=== PATIENT | female | born 1970 | race Caucasian/White ===

== ENCOUNTER 2017-06-29 08:09 | Inpatient (IN) | payer OTHER ==
[2017-06-29] MEDS ORDERED: Bupivacaine 0.5%/EPINEPHrine 1:200,000 50 ML MDV ONE (08:42)
[2017-06-29] MEDS ORDERED: Acetaminophen 500 MG Tab PO ONE (08:45)
[2017-06-29] MEDS ORDERED: Gabapentin 300 MG Cap PO ONE (08:45)
[2017-06-29] MEDS ORDERED: Celecoxib 200 MG Cap PO ONE (08:45)
[2017-06-29] MEDS ORDERED: Scopolamine 1.5 MG Transdermal Patch TOP SCH (08:45)
[2017-06-29] MEDS ORDERED: cefOXitin 2 GM in Sodium Chloride 0.9% 50 ML IV ONE (09:15)
[2017-06-29] MEDS: Dextrose 5%-Lactated Ringers 1,000 ML IV SCH ×3 (09:16→22:07)
[2017-06-29] MEDS ORDERED: Ropivacaine 50 ML, Dexamethasone 8 MG, EPINEPHrine 0.4 MG, Sodium Chloride 0.9% 27.6 ML NERVRT SCH ×4 (11:15)
[2017-06-29] MEDS ORDERED: Ketamine 500 MG/5 ML MDV IV SCH (11:15)
[2017-06-29] MEDS ORDERED: Lidocaine 2% 100 MG/5 ML Syringe IVPUSH ONE (11:15)
[2017-06-29] MEDS ORDERED: fentaNYL 250 MCG/5 ML SDV ONE ×2 (11:42→13:03)
[2017-06-29] MEDS ORDERED: Propofol 200 MG/20 ML SDV ONE (11:43)
[2017-06-29] MEDS ORDERED: Dexamethasone 4 MG/ML SDV ONE (11:43)
[2017-06-29] MEDS ORDERED: Ondansetron 4 MG/2 ML SDV ONE (11:43)
[2017-06-29] MEDS ORDERED: Glycopyrrolate 0.2 MG/ML 5 ML MDV ONE (11:43)
[2017-06-29] MEDS ORDERED: Rocuronium 50 MG/5 ML Vial ONE (11:43)
[2017-06-29] MEDS ORDERED: Neostigmine Methylsulfate 1 MG/ML 5 ML Syringe ONE (11:43)
[2017-06-29] MEDS ORDERED: Succinylcholine 200 MG/10 ML MDV ONE (11:43)
[2017-06-29] MEDS ORDERED: HYDROmorphone/Normal Saline 15 MG/30 ML PCA IV PRN (12:22)
[2017-06-29] MEDS: Lidocaine 0.4%/D5W 2 GM/500 ML BAG IV SCH (13:00)
[2017-06-29] MEDS ORDERED: Meropenem 500 MG SDV ONE (13:25)
[2017-06-29] MEDS ORDERED: Insulin Aspart 100 Units/ML 3 ML Pen SUBCUT ONE (14:45)
[2017-06-29] MEDS ORDERED: Glucose Gel 15 GM in 37.5 GM Tube PO PRN (16:05)
[2017-06-29] MEDS ORDERED: Glucagon,Human Recombinant 1 MG Vial IM PRN (16:05)
[2017-06-29] MEDS ORDERED: 50% Dextrose in Water 50 ML Syringe IVPUSH PRN (16:05)
[2017-06-29] MEDS ORDERED: hydrOXYzine HCl 100 MG/2 ML SDV IM PRN (17:00)
[2017-06-29] MEDS ORDERED: Metoclopramide 10 MG/2 ML SDV IVPUSH PRN (17:00)
[2017-06-29] MEDS ORDERED: MVI, Adult with Vitamin K 10 ML, Thiamine 100 MG, Chromium/Copper/Mang/Selen/Zn 1 ML in... IV SCH ×8 (17:00)
[2017-06-29] MEDS ORDERED: Labetalol 20 MG/4 ML Syringe IVPUSH PRN (17:00)
[2017-06-29] MEDS ORDERED: diphenhydrAMINE 50 MG/ML SDV IVPUSH PRN (17:00)
[2017-06-29] MEDS: Insulin Aspart 100 Units/ML 3 ML Pen SUBCUT SCH ×2 (17:02→22:06)
[2017-06-29] MEDS ORDERED: Pantoprazole 40 MG Vial IVPUSH SCH (18:00)
[2017-06-29] MEDS: Acetaminophen Soln 650 MG/20.3 ML UD Cup PO SCH (20:42)
[2017-06-29] MEDS: Heparin Sodium 5,000 Units/ML Vial SUBCUT SCH (20:42)
[2017-06-29] MEDS: Gabapentin 250 MG/5 ML Solution ML 470 ML Bottle PO SCH (20:42)
[2017-06-29] MEDS ORDERED: Gabapentin 250 MG/5 ML Solution ML 470 ML Bottle PO SCH (21:00)
[2017-06-30] MEDS: Insulin Aspart 100 Units/ML 3 ML Pen SUBCUT SCH ×3 (00:07→05:48)
[2017-06-30] MEDS ORDERED: Iohexol 647 MG/ML 50 ML SDV PO PRN (01:07)
[2017-06-30] MEDS: Acetaminophen Soln 650 MG/20.3 ML UD Cup PO SCH ×4 (02:04→19:32)
[2017-06-30] MEDS: Dextrose 5%-Lactated Ringers 1,000 ML IV SCH (05:42)
[2017-06-30] MEDS: Lidocaine 0.4%/D5W 2 GM/500 ML BAG IV SCH (05:47)
[2017-06-30] MEDS ORDERED: Insulin Aspart 100 Units/ML 3 ML Pen SUBCUT PRN (07:17)
[2017-06-30] MEDS: Heparin Sodium 5,000 Units/ML Vial SUBCUT SCH ×2 (08:09→19:32)
[2017-06-30] MEDS: Celecoxib 200 MG Cap PO SCH (09:08)
[2017-06-30] MEDS: SCOPOLAMINE PATCH CHECK TOP SCH (09:10)
[2017-06-30] MEDS: Gabapentin 250 MG/5 ML Solution ML 470 ML Bottle PO SCH (09:13)
[2017-06-30] MEDS: Loratadine 10 MG Tab PO SCH (11:19)
[2017-06-30] MEDS: Gabapentin 300 MG Cap PO SCH ×2 (13:56→20:40)
[2017-06-30] MEDS: Pantoprazole 40 MG Tab.CR PO SCH (15:39)
[2017-06-30] MEDS: MVI, Adult with Vitamin K 10 ML, Thiamine 100 MG, Chromium/Copper/Mang/Selen/Zn 1 ML in... IV SCH ×4 (15:40)
[2017-07-01] MEDS: Acetaminophen Soln 650 MG/20.3 ML UD Cup PO SCH ×4 (01:27→20:46)
[2017-07-01] MEDS: Dextrose 5%-Lactated Ringers 1,000 ML IV SCH ×2 (02:24→12:11)
[2017-07-01] MEDS: Ondansetron 4 MG/2 ML SDV IVPUSH PRN ×3 (02:48→19:41)
[2017-07-01] MEDS: Celecoxib 200 MG Cap PO SCH (07:36)
[2017-07-01] MEDS: Heparin Sodium 5,000 Units/ML Vial SUBCUT SCH ×2 (07:36→20:46)
[2017-07-01] MEDS ORDERED: Cyanocobalamin (Vitamin B12) 1,000 MCG/ML SDV IM ONE (09:00)
[2017-07-01] MEDS: HYDROmorphone 2 MG Tab PO PRN ×2 (09:23→21:46)
[2017-07-01] MEDS: SCOPOLAMINE PATCH CHECK TOP SCH (09:24)
[2017-07-01] MEDS: Loratadine 10 MG Tab PO SCH (09:25)
[2017-07-01] MEDS: Gabapentin 300 MG Cap PO SCH ×3 (09:25→20:46)
[2017-07-01] MEDS ORDERED: Bisacodyl 10 MG Supp RECTAL ONE (10:00)
[2017-07-01] MEDS ORDERED: Magnesium Hydroxide 400 MG/5 ML Susp 30 ML Cup PO ONE (10:00)
--- NOTE | 2017-07-01 14:03 | PN ---
DATE OF SERVICE: 07/01/2017 The patient has been afebrile with stable vital signs. She was doing well, but nausea and some increased pain. We will add some Dilaudid on a p.r.n. basis, Dulcolax suppository, milk of magnesia will be given, and we will hold the discharge until these issues have resolved. Blood sugars have come down into the normal range and we will discontinue Accu-Cheks at this time as well. Venu Tierney MD /[id number]
[2017-07-01] MEDS: MVI, Adult with Vitamin K 10 ML, Thiamine 100 MG, Chromium/Copper/Mang/Selen/Zn 1 ML in... IV SCH ×4 (15:41)
[2017-07-01] MEDS: Pantoprazole 40 MG Tab.CR PO SCH (15:45)
[2017-07-01] MEDS: Scopolamine 1.5 MG Transdermal Patch TRDERM SCH (20:42)
[2017-07-01] MEDS: Metoclopramide 10 MG/2 ML SDV IVPUSH SCH (21:46)
[2017-07-02] MEDS: Acetaminophen Soln 650 MG/20.3 ML UD Cup PO SCH ×4 (03:23→20:39)
[2017-07-02] MEDS: Metoclopramide 10 MG/2 ML SDV IVPUSH SCH ×3 (03:50→15:45)
[2017-07-02] MEDS: Dextrose 5%-Lactated Ringers 1,000 ML IV SCH (07:46)
[2017-07-02] MEDS: Celecoxib 200 MG Cap PO SCH (08:47)
[2017-07-02] MEDS: Heparin Sodium 5,000 Units/ML Vial SUBCUT SCH ×2 (08:47→20:41)
[2017-07-02] MEDS: SCOPOLAMINE PATCH CHECK TOP SCH (08:47)
[2017-07-02] MEDS: Gabapentin 300 MG Cap PO SCH ×3 (08:47→20:39)
[2017-07-02] MEDS: Loratadine 10 MG Tab PO SCH (08:48)
[2017-07-02] MEDS: Ondansetron 4 MG/2 ML SDV IVPUSH PRN (08:51)
--- NOTE | 2017-07-02 08:55 | CR ---
Limited upper GI The patient is status post Rangel-en-Y gastric bypass. There are left upper quadrant drains in place. T here is no extravasation of contrast. The gastric pouch empties readily into a nondilated Rangel limb. No complications are evident. Contrast is visualized within the colon from a CT exam performed the pr ior day. Impression: 1. Status post Rangel-en-Y gastric bypass without evidence for complication.
--- NOTE | 2017-07-02 09:23 | PN ---
DATE OF SERVICE: 07/02/2017 SUBJECTIVE: Linda did very well until yesterday morning, and she started having emesis after eating. At her evening meal, she had a protein shake. She has been n.p.o. with ice chips since that time. Has not had a bowel movement, and she had one on 07/01/2017. Vital signs otherwise have been stable and pain is controlled. REVIEW OF SYSTEMS: Remainder of review of systems negative for any pertinent positives and negatives. OBJECTIVE: GENERAL: Donna Pascual is a 46-year-old female. VITAL SIGNS: TPR is 99.4, 79, 18, and blood pressure 114/57. HEENT: Negative. NECK: Supple. HEART: Regular rate and rhythm. LUNGS: Clear. ABDOMEN: Dressings dry and intact. Abdominal binder is on. EXTREMITIES: Without peripheral edema. ASSESSMENT: Diagnostic laparoscopy turned to laparotomy with reduction of small bowel volvulus and closure of internal hernia, small bowel resection, rectosigmoid colon resection and mobilization of omentum into pelvis for small bowel volvulus with focal strangulation at the JJ junction, sigmoid colon volvulus, on 06/29/2017. PLAN: 1. Full liquid diet. 2. Give 3 med cups, to drink one q.20 minutes or 3 per hour. 3. Communication order written that if any further emesis, to call Venu Tierney MD. An upper GI with post Rangel-en-Y gastric bypass surgery protocol will be scheduled in a.m. 4. Good pulmonary toilet. 5. We will evaluate p.r.n. or in a.m. Mame Albert PA-C /[id number]
--- NOTE | 2017-07-02 12:56 | PN ---
DATE OF SERVICE: 06/30/2017 The patient has been afebrile with stable vital signs. Overall, appears to be doing well. Urine output has been quite high and we will turn down the IV rate. Her upper GI x-ray looks good. We will begin a step-4 diet today and continue current pain management with Celebrex, gabapentin, and Tylenol; appears to be working fairly satisfactory. She states that she is not using any Dilaudid at this time. We will add some senna Plus to the regimen today. Otherwise, begin step-4 diet and maximize activity and work with pulmonary toilet. Venu Tierney MD /[id number]
--- NOTE | 2017-07-02 14:27 | OR ---
DATE OF PROCEDURE: 06/29/2017 PREOPERATIVE DIAGNOSIS: Partial small bowel obstruction. POSTOPERATIVE DIAGNOSES: 1. 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 2. Sigmoid colon volvulus. OPERATIVE PROCEDURES: Diagnostic laparoscopy converted to laparotomy with; 1. Reduction of small bowel volvulus and closure of internal hernia (73156). 2. Small bowel resection (00616). 3. Rectosigmoid colon resection (31544). 4. Mobilization of omentum into pelvis to limit adhesion formation between pelvic and abdominal morales and underlying viscera (50568). ANESTHESIA: General. TOP BOTTOM ATTACHING MACHINE OPERATOR: Mame Albert PA-C. INDICATION FOR PROCEDURE: The patient presented with a clinical picture of a partial small bowel obstruction. The plan is to proceed with a diagnostic laparoscopy, laparotomy if necessary, and bowel procedures as indicated, including potential resection. Potential risks including bleeding, infection, leaks from various GI tract closures, possible recurrence of the problem over time, and the possibility of cardiopulmonary, septic, or hemorrhagic complications leading to were discussed, and the patient wishes to proceed. DETAILS OF PROCEDURE: The patient was taken to the operating room and after general endotracheal anesthesia was induced, she was placed in a lithotomy position. Guido catheter was inserted and the abdomen was prepped and draped. In the left lower quadrant, a transverse incision was made, and the peritoneal cavity was entered under direct vision with an Optiview trocar. The patient was noted to have a massively dilated sigmoid colon. Looking at the base of the loop, there appeared to be a chronic sigmoid volvulus at that location, as there was a crease across the bowel, where it was partially at this point flipped over on itself. At this point, bilateral transversus abdominis plane blocks were placed using direct vision with the laparoscope and the needle in the correct plane and standard solution being placed bilaterally. Due to the large size of the colon obscuring much of the view of the small bowel, at that point, we decided to proceed with an open laparotomy. Trocars were removed, and the peritoneal cavity deflated. An incision was then made from the umbilicus roughly a handsbreadth toward the xiphoid. This was carried down through the full thickness of abdominal wall and the peritoneal cavity identified. Initially, we resected the colon beginning with dividing the midsigmoid colon and then the upper rectum with IVETH rosendo, and the underlying mesentery with the mesenteric and vascular IVETH loads. This allowed us a more easy visualization of the small bowel by getting the large air-filled sigmoid colon and upper rectum out of the operative field. Exploration revealed a volvulus involving the small bowel with a large amount of the small bowel rotating from a right to left direction underneath the mesenteric defect, below the jejunojejunostomy. This was gradually reduced. The bowel and the side of the volvulus were somewhat mehta in appearance, with intravenous hypertension, the entire bowel pinked up nicely with its reduction, and there were no areas that were ischemic after reduction. There was a fixed stricture at the point where the Rangel limb entered the jejunojejunostomy. This area was then divided with the Rangel limb being divided just flush to the jejunojejunostomy. Resection of the small bowel was then undertaken as the divided end of the Rangel limb was somewhat ischemic at that point, and that specimen was sent for a pathologic review. A 3 cm distally then the [id number] enteroenterostomy between the divided end of the Rangel limb and the small bowel level was accomplished with internal firing of the Endo-IVETH 60 mm stapler. Common opening was closed transversely with the same stapler. Angles anastomosed were then reinforced with some 3-0 Vicryl stitch. The mesenteric defect was then closed with a running 2-0 silk stitch. As this point, the anastomosis between the sigmoid colon and the upper rectum was accomplished with a [id number] firing initially of 60 mm internal firing of the IVETH martinez load followed by 45 mm internal firing of a martinez load. The common opening was then closed transversely with the purple load, the angles anastomosed, and mesenteric defect in this case were reinforced with 3-0 Vicryl stitch. The abdomen was then inspected. At this point, both the anastomoses were then reinforced with some fibrin sealant. The patient was felt to be at high risk for problematic adhesion formation between the pelvic and abdominal wall, and the underlying viscera. Given this, the omentum was brought down and then tacked down to the pelvic sidewall, and area posterior to the urinary bladder with some 3-0 Vicryl stitch. Prior to that, the area had been irrigated with antibiotic-containing saline solution. No further problems were noted at this point. The midline fascia was then approximated with #2 Vicryl stitch and the skin with rosendo. A 10-Hebrew round Roddy-Melton drain had been placed through a stab wound beneath the incision and sutured with 4-0 Vicryl stitch. The patient was taken to the recovery room in a satisfactory condition. Physician boiler assistant operator, Mame Albert, played an essential role in assisting in this case, helping to position the patient, retract structures as needed, as well as suturing and stapling when indicated. Her presence improved patient safety and decreased the operative time. Venu Tierney MD /[id number]
[2017-07-02] MEDS: Pantoprazole 40 MG Tab.CR PO SCH (15:45)
[2017-07-02] MEDS: MVI, Adult with Vitamin K 10 ML, Thiamine 100 MG, Chromium/Copper/Mang/Selen/Zn 1 ML in... IV SCH ×4 (17:07)
[2017-07-02] MEDS ORDERED: Ondansetron 4 MG Tab.DIS PO PRN (18:10)
[2017-07-02] MEDS ORDERED: Metoclopramide 10 MG Tab PO PRN (18:10)
[2017-07-03] MEDS: Acetaminophen Soln 650 MG/20.3 ML UD Cup PO SCH ×2 (02:46→08:13)
[2017-07-03 07:28] VITALS: BP 115/53
[2017-07-03] MEDS: Gabapentin 300 MG Cap PO SCH (08:13)
[2017-07-03] MEDS: Celecoxib 200 MG Cap PO SCH (08:14)
[2017-07-03] MEDS: Loratadine 10 MG Tab PO SCH (08:14)
[2017-07-03] MEDS: Heparin Sodium 5,000 Units/ML Vial SUBCUT SCH ×2 (08:14→08:17)
[2017-07-03] MEDS: SCOPOLAMINE PATCH CHECK TOP SCH (08:17)
[2017-07-03] MEDS: Scopolamine 1.5 MG Transdermal Patch TRDERM SCH (09:03)
[2017-07-03] MEDS ORDERED: Scopolamine 1.5 MG Transdermal Patch TRDERM SCH (10:00)
--- NOTE | 2017-07-04 12:59 | DISCH ---
FINAL DIAGNOSES: 1. 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 2. Sigmoid colon volvulus. 3. Type 2 diabetes mellitus. 4. Bariatric surgery status. 5. History of depression. 6. History of hyperlipidemia. 7. History of back and joint pain. OPERATIVE PROCEDURE: This was done on 06/29, laparoscopy converted to laparotomy with; 1. Reduction of small bowel volvulus and closure of internal hernia. 2. Small bowel resection. 3. Rectosigmoid colon resection. 4. Mobilization of omentum into the pelvis to limit adhesion formation between pelvic and abdominal morales and underlying viscera. SUMMARY: This is a 46-year-old status post Rangel-en-Y gastric bypass on October of 2012. She presents now with partial bowel obstruction type symptoms. On this day of operation, the patient underwent a laparoscopy converted to laparotomy with the latter related to a strikingly enlarged and twisted sigmoid colon. She was found to have a small bowel volvulus, and after reduction of that, was noted to have a fixed stricture at the jejunojejunostomy. The patient to be somewhat more distal small bowel anatomy and then was also noted to have the sigmoid colon volvulus which resulted in rectosigmoid resection as well. Postoperatively, the patient had some problems with nausea and vomiting for the first 2 to 3 days. This is now resolved, and she will be sent home maintaining a soft solid diet until the next appointment which will be with Mame Albert at [facility], Sunday, 07/10. MEDICATIONS ON DISCHARGE: Include the same as the prior to admission plus Celebrex 200 mg p.o. daily x14 days; gabapentin 300 mg p.o. t.i.d. x14 days; Zofran 4 mg ODT q.4 hours p.r.n. nausea, #25, refill x1; Senna Plus 2 tablets daily, 1 month's supply being called in; and Tylenol 650 mg p.o. q.i.d. x1 week, then p.r.n. She had a lap scopolamine patch placed today and was instructed to remove that in 4 days.
== END 2017-07-03 09:40 | disposition home or self-care (01) | DRG 330 ==
LOC: JP.SDS 08:09 → JP.SDSSCHI 08:09 → EDSTATUS 11:15 → JP.SDSSCHI 14:05 → JP.2SS 14:05
PROVIDERS: ADMIT Surgery; ATTEND Surgery
PROC: 0DBA0ZX Excision of Jejunum, Open Approach, Diagnostic (ICD-10-PCS; principal; 2017-06-29)
PROC: 0DS80ZZ Reposition Small Intestine, Open Approach (ICD-10-PCS; 2017-06-29)
PROC: 0DJD4ZZ Inspection of Lower Intestinal Tract, Percutaneous Endoscopic Approach (ICD-10-PCS; 2017-06-29)
PROC: 0DBP0ZX Excision of Rectum, Open Approach, Diagnostic (ICD-10-PCS; 2017-06-29)
PROC: 0DBN0ZX Excision of Sigmoid Colon, Open Approach, Diagnostic (ICD-10-PCS; 2017-06-29)
PROC: 0DNU0ZZ Release Omentum, Open Approach (ICD-10-PCS; 2017-06-29)
PROC: 0D1N0ZP Bypass Sigmoid Colon to Rectum, Open Approach (ICD-10-PCS; 2017-06-29)
PROC: 0WQF0ZZ Repair Abdominal Wall, Open Approach (ICD-10-PCS; 2017-06-29)
PROC: 3E0T3BZ Introduction of Anesthetic Agent into Peripheral Nerves and Plexi, Percutaneous Approach (ICD-10-PCS; 2017-06-29)
DX: K56.2 Volvulus (principal); K91.2 Postsurgical malabsorption, not elsewhere classified; Z53.31 Laparoscopic surgical procedure converted to open procedure; K46.9 Unspecified abdominal hernia without obstruction or gangrene; K56.699 Other intestinal obstruction unspecified as to partial versus complete obstruction; I10 Essential (primary) hypertension; E11.9 Type 2 diabetes mellitus without complications; F32.9 Major depressive disorder, single episode, unspecified; E53.8 Deficiency of other specified B group vitamins; Z98.84 Bariatric surgery status; M54.9 Dorsalgia, unspecified; M25.50 Pain in unspecified joint
CPT/HCPCS: 74240; 74240-26; 82962; 88307; 94762; A9270-GY; C9113; J0171; J0330; J0694; J1100; J1644; J2001; J2185; J2405; J2704; J2710; J2765; J2795; J3010; J3410; J3411; J3420; J7030; J7042; J7050; Q9967

== ENCOUNTER 2019-03-30 17:12 | Emergency (ER) | payer BC, MEDICAID, OTHER ==
--- NOTE | 2019-03-30 17:57 | EDM.PDOC ---
<Katheryn Dill - Last Filed: 03/30/19 18:00> ED HPI GENERAL MEDICAL PROBLEM - General Chief Complaint: Abdominal Pain Stated Complaint: PAIN ON LT SIDE STOMACH Time Seen by Provider: 03/30/19 17:52 Source of Information: Reports: Patient History Limitations: Reports: No Limitations - History of Present Illness INITIAL COMMENTS - FREE TEXT/NARRATIVE: pt arrived with pain in the upper abdoman more on the rt than the left. She also has noted a bulge in her upper abdoman when she goes to sit up. Onset: Gradual, Other ( She really has not been feeling right for the past 3 weeks. She did go to the [facility] and she was told she had inflamation in her stomach and colon. ) Duration: Hour(s): Location: Reports: Abdomen Associated Symptoms: Reports: Other (pt has noted a definite chnge in her stools. Alot of times when she eats she feels uncomfortable until she has a bm. ) Abdomen Pain Score (Numeric/FACES): 4 - Related Data Allergies Allergy/AdvReac Type Severity Reaction Status Date / Time gluten Allergy Rash Verified 03/30/19 17:35 ibuprofen Allergy Cannot Verified 03/30/19 17:35 Remember nickel [Nickel] Allergy Rash Verified 03/30/19 17:35 strawberry [[place]] Allergy Hives Verified 03/30/19 17:35 codeine AdvReac Dizziness Verified 03/30/19 17:35 Dairy Products AdvReac Diarrhea Verified 03/30/19 17:35 shrimp Allergy Nausea and Uncoded 03/30/19 17:35 Vomiting Home Meds: Home Meds Loratadine [Claritin] 10 mg PO DAILY 11/12/12 [History] Calcium Carb/Vitamin D3/Vit K1 [Calcium + D Soft Chewable Tab] 1 cap PO DAILY [History] Cyanocobalamin (Vitamin B-12) [Vitamin B-12] 1,000 mcg SL DAILY 06/28/17 [ History] Ergocalciferol (Vitamin D2) [Vitamin D2] 50,000 units PO DAILY 06/28/17 [History ] Multivitamin [Multivitamins] 1 each PO DAILY 06/28/17 [History] Thiamine HCl 50 mg PO DAILY 06/28/17 [History] Acetaminophen [Tylenol] 650 mg PO Q6H PRN 7 Days tablet 07/03/17 [Rx] Ondansetron [Zofran ODT] 4 mg PO Q4H PRN #25 tab.dis 07/03/17 [Rx] Sennosides/Docusate Sodium [Senna Plus Tablet] 2 tab PO DAILY #60 tab 07/03/17 [ Rx] Albuterol [Proventil Neb Soln] 1 puff IH ASDIRECTED 03/30/19 [History] Past Medical History HEENT History: Reports: Allergic Rhinitis, Impaired Vision Cardiovascular History: Reports: High Cholesterol, Hypertension Respiratory History: Reports: Asthma Gastrointestinal History: Reports: Cholelithiasis Genitourinary History: Reports: None CLEARANCE REPRESENTATIVE History: Reports: Dysfunctional Uterine Bleeding, Endometrial Ablation, Musculoskeletal History: Reports: Back Pain, Chronic, Fracture, Osteoarthritis Neurological History: Reports: Concussion, Migraines Psychiatric History: Reports: Anxiety, Depression, Panic Attack Endocrine/Metabolic History: Reports: Diabetes, Type II, Obesity/BMI 30+, Vitamin D Deficiency Hematologic History: Reports: Anemia, B12 Deficiency - Infectious Disease History Infectious Disease History: Reports: Chicken Pox - Past Surgical History Head Surgeries/Procedures: Reports: None HEENT Surgical History: Reports: None Cardiovascular Surgical History: Reports: None Respiratory Surgical History: Reports: None GI Surgical History: Reports: Bariatric Procedure, Cholecystectomy Female Surgical History: Reports: Section, Endometrial Ablation Endocrine Surgical History: Reports: None Neurological Surgical History: Reports: None Musculoskeletal Surgical History: Reports: None Dermatological Surgical History: Reports: None Social & Family History - Tobacco Use Smoking Status *Q: Former Smoker Used Tobacco, but Quit: Yes Month/Year Tobacco Last Used: 2016 Second Hand Smoke Exposure: No - Caffeine Use Caffeine Use: Reports: Coffee - Alcohol Use Days Per Week of Alcohol Use: 2 Number of Drinks Per Day: 1 Total Drinks Per Week: 2 - Recreational Drug Use Recreational Drug Use: No ED ROS GENERAL - Review of Systems Review Of Systems: See Below Constitutional: Reports: No Symptoms HEENT: Reports: No Symptoms Respiratory: Reports: No Symptoms Cardiovascular: Reports: No Symptoms Endocrine: Reports: No Symptoms GI/Abdominal: Reports: Abdominal Pain (pain in the upper abdoman and a definite bulge in the upper abdoman when she goes to sit up. ) : Reports: No Symptoms Musculoskeletal: Reports: No Symptoms Skin: Reports: No Symptoms ED EXAM, GI/ABD - Physical Exam Exam: See Below Text/Narrative:: pt arrived stating that she was having upper abdomanal pain, she has a bulge in her upper abdoman when she goes to sit up when she eats she has pain until she has a bm. Exam Limited By: No Limitations General Appearance: Alert, Moderate Distress Ears: Normal TMs Nose: Normal Inspection Throat/Mouth: Normal Inspection Head: Atraumatic Neck: Normal Inspection Respiratory/Chest: No Respiratory Distress Cardiovascular: Regular Rate, Rhythm GI/Abdominal Exam: Other ( tender in the upper mid abdoman. When she goes to sit up she darinel a definite bulge. ) (Female) Exam: Deferred Rectal (Female) Exam: Deferred Back Exam: Normal Inspection Extremities: Normal Inspection Neurological: Alert, Oriented, Normal Cognition Course - Vital Signs Last Recorded V/S: Last Vital Signs Temp 36.7 C 03/30/19 17:34 Pulse 63 03/30/19 20:21 Resp 16 03/30/19 19:53 BP 134/55 L 03/30/19 20:21 Pulse Ox 95 03/30/19 20:21 - Orders/Labs/Meds Orders: Active Orders 24 hr Category Date Time Status Iopamidol [Isovue-300 (61%)] Med 03/30/19 18:45 Active 100 ml IV . DIRECTED Sodium Chloride 0.45% with KCl [1/2 NS with 20 mEq KCl] Med 03/30/19 19:30 Active 1,000 ml IV ASDIRECTED Sodium Chloride 0.9% [Normal Saline] 1,000 ml Med 03/30/19 18:00 Active IV ASDIRECTED Sodium Chloride 0.9% [Normal Saline] 100 ml Med 03/30/19 18:45 Active IV ASDIRECTED Medication Orders Sodium Chloride (Normal Saline) 1,000 mls @ 999 mls/hr IV ASDIRECTED LAVON Last Admin: 03/30/19 18:11 Dose: 999 mls/hr Sodium Chloride (Normal Saline) 100 mls @ 3 mls/sec IV ASDIRECTED LAVON Last Admin: 03/30/19 19:05 Dose: 3 mls/sec Potassium Chloride/Sodium Chloride (1/2 Ns With 20 Meq Kcl) 1,000 mls @ 150 mls /hr IV ASDIRECTED LAVON Last Admin: 03/30/19 19:31 Dose: 150 mls/hr Iopamidol (Isovue-300 (61%)) 100 ml IV . DIRECTED LAVON Last Admin: 03/30/19 19:05 Dose: 100 ml Labs: Laboratory Tests 03/30/19 03/30/19 03/30/19 Range/Units 17:59 18:04 18:04 WBC 7.6 (4.5-11.0) K/uL RBC 3.78 (3.30-5.50) M/uL Hgb 10.9 L (12.0-15.0) g/dL Hct 34.5 L (36.0-48.0) % MCV 91 (80-98) fL MCH 29 (27-31) pg MCHC 32 (32-36) % Plt Count 312 (150-400) K/uL Neut % (Auto) 62 (36-66) % Lymph % (Auto) 26 (24-44) % Bowman % (Auto) 7 H (2-6) % Eos % (Auto) 5 H (2-4) % Baso % (Auto) 1 (0-1) % Sodium (140-148) mmol/L Potassium (3.6-5.2) mmol/L Chloride (100-108) mmol/L Carbon Dioxide (21-32) mmol/L Anion Gap (5.0-14.0) mmol/L BUN (7-18) mg/dL Creatinine (0.6-1.0) mg/dL Est Cr Clr Drug Dosing mL/min Estimated GFR (MDRD) (>60) Glucose (74-106) mg/dL Calcium (8.5-10.1) mg/dL Magnesium (1.8-2.4) mg/dL Total Bilirubin (0.2-1.0) mg/dL AST (15-37) U/L ALT (12-78) U/L Alkaline Phosphatase (46-116) U/L C-Reactive Protein 0.19 (0.0-0.3) mg/dL Total Protein (6.4-8.2) g/dL Albumin (3.4-5.0) g/dL Globulin (2.3-3.5) g/dL Albumin/Globulin Ratio (1.2-2.2) Urine Color Yellow (YELLOW) Urine Appearance Clear (CLEAR) Urine pH 5.5 (5.0-8.0) Ur Specific Lueders >= 1.030 (1.008-1.030) Urine Protein Negative (NEGATIVE) mg/dL Urine Glucose (UA) Negative (NEGATIVE) mg/dL Urine Ketones Negative (NEGATIVE) mg/dL Urine Occult Blood Negative (NEGATIVE) Urine Nitrite Negative (NEGATIVE) Urine Bilirubin Small H (NEGATIVE) Urine Urobilinogen 2.0 H (0.2-1.0) EU/dL Ur Leukocyte Esterase Negative (NEGATIVE) Urine RBC Not seen (0-5) Urine WBC Not seen (0-5) Ur Epithelial Cells Rare Amorphous Sediment Not seen Urine Bacteria Moderate Urine Mucus Few Urine Other 03/30/19 03/30/19 Range/Units 18:04 20:21 WBC (4.5-11.0) K/uL RBC (3.30-5.50) M/uL Hgb (12.0-15.0) g/dL Hct (36.0-48.0) % MCV (80-98) fL MCH (27-31) pg MCHC (32-36) % Plt Count (150-400) K/uL Neut % (Auto) (36-66) % Lymph % (Auto) (24-44) % Bowman % (Auto) (2-6) % Eos % (Auto) (2-4) % Baso % (Auto) (0-1) % Sodium 146 (140-148) mmol/L Potassium 3.5 L (3.6-5.2) mmol/L Chloride 109 H (100-108) mmol/L Carbon Dioxide 27 (21-32) mmol/L Anion Gap 13.5 (5.0-14.0) mmol/L BUN 12 (7-18) mg/dL Creatinine 0.6 (0.6-1.0) mg/dL Est Cr Clr Drug Dosing 94.79 mL/min Estimated GFR (MDRD) > 60 (>60) Glucose 108 H (74-106) mg/dL Calcium 8.5 (8.5-10.1) mg/dL Magnesium 2.0 (1.8-2.4) mg/dL Total Bilirubin 0.3 (0.2-1.0) mg/dL AST 23 (15-37) U/L ALT 43 (12-78) U/L Alkaline Phosphatase 165 H (46-116) U/L C-Reactive Protein (0.0-0.3) mg/dL Total Protein 7.3 (6.4-8.2) g/dL Albumin 3.5 (3.4-5.0) g/dL Globulin 3.8 H (2.3-3.5) g/dL Albumin/Globulin Ratio 0.9 L (1.2-2.2) Urine Color (YELLOW) Urine Appearance (CLEAR) Urine pH (5.0-8.0) Ur Specific Lueders (1.008-1.030) Urine Protein (NEGATIVE) mg/dL Urine Glucose (UA) (NEGATIVE) mg/dL Urine Ketones (NEGATIVE) mg/dL Urine Occult Blood (NEGATIVE) Urine Nitrite (NEGATIVE) Urine Bilirubin (NEGATIVE) Urine Urobilinogen (0.2-1.0) EU/dL Ur Leukocyte Esterase (NEGATIVE) Urine RBC (0-5) Urine WBC (0-5) Ur Epithelial Cells Amorphous Sediment Urine Bacteria Urine Mucus Urine Other Meds: Medications Generic Name Dose Route Start Last Admin Trade Name Freq PRN Reason Stop Dose Admin Sodium Chloride 1,000 mls @ 999 mls/hr 03/30/19 18:00 03/30/19 18:11 Normal Saline IV 999 mls/hr ASDIRECTED LAVON Administration Sodium Chloride 100 mls @ 3 mls/sec 03/30/19 18:45 03/30/19 19:05 Normal Saline IV 3 mls/sec ASDIRECTED LAVON Administration Potassium Chloride/Sodium Chloride 1,000 mls @ 150 mls/hr 03/30/19 19:30 11/08 19:31 1/2 Ns With 20 Meq Kcl IV 150 mls/hr ASDIRECTED LAVON Administration Iopamidol 100 ml 03/30/19 18:45 03/30/19 19:05 Isovue-300 (61%) IV 100 ml . DIRECTED LAVON Administration Discontinued Medications Generic Name Dose Route Start Last Admin Trade Name Freq PRN Reason Stop Dose Admin Al Hydroxide/Mg Hydroxide 15 0 ml 03/30/19 20:19 03/30/19 20:34 ml/ Lidocaine HCl 15 ml PO 03/30/19 20:20 15 ml ONETIME ONE Administration Metoclopramide HCl 5 mg 03/30/19 20:16 03/30/19 20:32 Reglan IVPUSH 03/30/19 20:17 5 mg ONETIME ONE Administration Ondansetron HCl 4 mg 03/30/19 18:01 03/30/19 18:13 Zofran IVPUSH 03/30/19 18:02 4 mg ONETIME ONE Administration Sodium Chloride 10 ml 03/30/19 18:42 03/30/19 19:05 Saline Flush FLUSH 03/30/19 18:43 10 ml ONETIME ONE Administration Departure - Departure Disposition: Home, Self-Care 01 Clinical Impression: Mild dehydration Gastritis Qualifiers: Gastritis type: unspecified gastritis Chronicity: acute Gastritis bleeding: without bleeding Qualified Code(s): K29.00 - Acute gastritis without bleeding - Discharge Information Instructions: Gastritis, Adult, [id number] Referrals: Venu Tierney MD [Primary Care Provider] - Forms: ED Department Discharge Additional Instructions: Continue your current medications. Take acetaminophen up to 1000 mg every 6 hrs as needed for pain relief. Take Maalox 30 ml after meals until feeling better. Avoid: caffeine, carbonated beverages, tobacco, alcohol, ibuprofen, Aleve, or aspirin. Recheck in the clinic later this week. Return if worse. Sepsis Event Note - Evaluation Sepsis Screening Result: No Definite Risk - Focused Exam Vital Signs: Vital Signs Temp Pulse Resp BP Pulse Ox 03/30/19 20:21 63 134/55 L 95 03/30/19 19:53 62 16 146/74 H 97 03/30/19 17:34 36.7 C 68 16 154/70 H 96 03/30/19 17:30 36.7 C 68 16 154/70 H 96 Date Exam was Performed: 03/30/19 Time Exam was Performed: 18:00 - My Orders Last 24 Hours: My Active Orders 03/30/19 18:45 Iopamidol [Isovue-300 (61%)] 100 ml IV . DIRECTED Sodium Chloride 0.9% [Normal Saline] 100 ml IV ASDIRECTED 03/30/19 19:30 Sodium Chloride 0.45% with KCl [1/2 NS with 20 mEq KCl] 1,000 ml IV ASDIRECTED - Assessment/Plan Last 24 Hours: My Active Orders 03/30/19 18:45 Iopamidol [Isovue-300 (61%)] 100 ml IV . DIRECTED Sodium Chloride 0.9% [Normal Saline] 100 ml IV ASDIRECTED 03/30/19 19:30 Sodium Chloride 0.45% with KCl [1/2 NS with 20 mEq KCl] 1,000 ml IV ASDIRECTED <Kingsley Fu G - Last Filed: 03/30/19 20:56> Course - Vital Signs Text/Narrative:: Got symptomatic relief with GI cocktail po. - Radiology Interpretation Free Text/Narrative:: CT abd/pelvis with IV contrast-L kidney with wedged shaped low attenuation defect of outer/upper pole. Hepatomegaly. CT Results Date: 03/30/19 Departure - Departure Time of Disposition: 21:00 Condition: Fair - Discharge Information *PRESCRIPTION DRUG MONITORING PROGRAM REVIEWED*: No *COPY OF PRESCRIPTION DRUG MONITORING REPORT IN PATIENT EMILY: No Sepsis Event Note - Focused Exam Date Exam was Performed: 03/30/19 Time Exam was Performed: 20:53
[2019-03-30] MEDS ORDERED: Sodium Chloride 0.9% 1,000 ML IV SCH (18:00)
[2019-03-30] MEDS ORDERED: Ondansetron 4 MG/2 ML SDV IVPUSH ONE (18:01)
[2019-03-30] MEDS ORDERED: Sodium Chloride 0.9% 10 ML Syringe FLUSH ONE (18:42)
[2019-03-30] MEDS ORDERED: Sodium Chloride 0.9% 100 ML IV SCH (18:45)
[2019-03-30] MEDS ORDERED: Iopamidol 612 MG/ML 100 ML Bottle IV SCH (18:45)
[2019-03-30] MEDS ORDERED: Sodium Chloride 0.45% with KCl 1,000 ML IV SCH (19:30)
--- NOTE | 2019-03-30 19:36 | CRLCT ---
Indication : Abdominal pain with a history of gastric bypass. Technique: Multiple contiguous axial images were obtained from the lung bases through the symphysis pubis after the intravenous administration of 100 milliliters Isovue 300. Please note that all CT scans at this facility use dose modulation, iterative reconstruction, and/or weight-based dosing when appropriate to reduce radiation dose to as low as reasonably achievable. Comparison: June 28, 2017 Findings: Bibasilar atelectasis is identified. The heart is normal in size. No pericardial effusion is identified. The liver, spleen, adrenals, and right kidney are normal. No intrahepatic biliary ductal dilatation is identified. The liver is enlarged measuring 22 centimeters in maximum dimension. Fatty replacement of the pancreas is identified. Postsurgical changes of a cholecystectomy are identified. A wedge-shaped area of abnormality is identified in the lateral superior aspect of the left kidney, best seen on image 68, series 3 or image 48, series 2. The differential diagnosis for this includes vascular versus infection up. There is only mild vascular calcifications. This is not a CTA. However, the origin of the left renal artery does appear to be patent. In the pelvis, the urinary bladder is normal. The uterus is grossly normal. Postoperative changes of the small bowel are identified in the left lower quadrant. The small and large bowel are normal in caliber. No free air or free fluid is identified within the abdomen or pelvis. Degenerative changes of the spine are identified. Impression: Wedge-shaped area of low attenuation identified in the lateral aspect of the superior pole of the left kidney. The differential includes infection versus vascular injury. However, the renal artery appears to be patent on the left. Hepatomegaly. These findings were discussed with Dr. Baltazar at the time of this dictation. Please note that all CT scans at this facility use dose modulation, iterative reconstruction, and/or weight-based dosing when appropriate to reduce radiation dose to as low as reasonably achievable. Dictated by Cleopatra Ngo MD @ Mar 30 2019 7:25PM Signed by Dr. Cleopatra Ngo @ Mar 30 2019 7:34PM
[2019-03-30] MEDS ORDERED: Metoclopramide 10 MG/2 ML SDV IVPUSH ONE (20:16)
[2019-03-30] MEDS ORDERED: Alum Hydrox/Mag Hydrox/Simeth 15 ML, Lidocaine 2% 15 ML PO ONE ×2 (20:19)
[2019-03-30 20:21] VITALS: BP 134/55; PULSE 63
== END 2019-03-30 20:59 | disposition home or self-care (01) ==
LOC: JP.ED 17:12
DX: K29.00 Acute gastritis without bleeding (principal); I10 Essential (primary) hypertension; E78.00 Pure hypercholesterolemia, unspecified; E11.9 Type 2 diabetes mellitus without complications; E66.9 Obesity, unspecified; F41.9 Anxiety disorder, unspecified; F32.9 Major depressive disorder, single episode, unspecified; Z79.899 Other long term (current) drug therapy; Z87.891 Personal history of nicotine dependence; Z91.013 Allergy to seafood
CPT/HCPCS: 36415; 74177; 80053; 81001; 83735; 85025; 86140; 96361; 96365; 96375; 99284; A9270; J2405; J2765; J3480; J7030; J7050; Q9967